=== PATIENT | male | born 1990 | race Hispanic/Latino ===

== ENCOUNTER 2016-07-09 13:01 | Emergency (ER) ==
[2016-07-09 13:11] VITALS: BP 121/58
[2016-07-09] MEDS ORDERED: MOTRIN PO ONE (13:12)
[2016-07-09] MEDS ORDERED: DECADRON IM ONE (13:40)
--- NOTE | 2016-07-09 13:41 | PROVIDER DOCUMENTATION ---
HPI-Respiratory General <Freda CeballosMonster - Last Filed: 07/09/16 13:37> - General Source: patient - History of Present Illness-Resp Quality of Pain: reports: aching Severity in ED: reports: mild Onset/Duration: reports: gradual, last night Timing: reports: still present Context: reports: multiple patients with similar complaints Cough Quality/Degree: reports: mild, dry cough Modifying Factors: worse with: coughing Associated Symptoms: reports: cough, dizziness, flu-like symptoms, muscle/ bodyaches. denies: nasal congestion, nasal drainage, shortness of breath, short of breath, sore throat Similar Symptoms Previously?: No Recently seen or treated by another doctor?: No <Dustin Fuller - Last Filed: 07/09/16 13:55> - General Chief Complaint: Flu Symptoms Stated Complaint: BODY ACHES/DIZZY/RIGHT SIDE PAIN Time Seen by Provider: 07/09/16 13:36 Allergies/Adverse Reactions: Patient Allergies Allergy/AdvReac Type Severity Reaction Status Date / Time No Known Allergies Allergy Verified 07/09/16 13:11 - History of Present Illness-Resp Nature of Presenting Problem: pt is a 25 y/o m that presents to the ER with bodyaches, fever/chills, cough, congestion, and fatigue x 24 hours. patient denies n/v/d, abdominal pain, or earache (Dustin Fuller) Review of Systems - Adult - REVIEW OF SYSTEMS - ADULT Constitutional: reports: chills, fever Eyes: reports: no symptoms reported Ears, Nose, Mouth & Throat: denies: ear pain, sinus problem, throat pain, throat swelling Cardiovascular: denies: chest pain, palpitations Respiratory: reports: cough. denies: shortness of breath, wheezing Gastrointestinal: denies: abdominal pain, diarrhea, nausea, vomiting Genitourinary: reports: no symptoms reported Musculoskeletal: reports: muscle aches. denies: joint swelling Integumentary: reports: no symptoms reported Neurological: reports: dizziness/vertigo, headache/migraines Psychiatric: reports: no symptoms reported Endocrine: reports: no symptoms reported Hematologic/Lymphatic: reports: no symptoms reported Allergic/Immunologic: reports: no symptoms reported All Other Systems: Reviewed and Negative <Dustin Fuller - Last Filed: 07/09/16 13:55> Past History - Adult - PAST MEDICAL HISTORY-ADULT Review of Records: reports: Old Records Reviewed, Nursing Assessment Review, Medications Reviewed - PRIOR SURGERIES/PROCEDURES Surgical/Procedure History: reports: none - IMMUNIZATION STATUS Childhood Immunizations: See Nurse Assessment Flu Vaccine: See Nurse Assessment - FAMILY HISTORY Family History: reviewed, not pertinent - SOCIAL HISTORY Smoking: non-smoker Living Situation: family <Dustin Fuller - Last Filed: 07/09/16 13:55> Physical Exam-General - PHYSICAL EXAM-ADULT Initial Vital Signs Reviewed: Yes - CONSTITUTIONAL General Appearance: alert, other (fatigue) - EYES Eyes: PERRL/EOMI, pink conjunctivae - HEAD, EARS, NOSE, MOUTH & THROAT HENMT: normocephalic/atraumatic, moist mucous membranes, normal ENT inspection, pharynx normal - NECK Neck: non-tender, full range of motion, normal inspection - RESPIRATORY Respiratory: lungs clear, normal breath sounds, no respiratory distress, no accessory muscle use - CARDIOVASCULAR Cardiovascular: no JVD, no murmur, tachycardia - GASTROINTESTINAL (ABDOMEN) Abdominal Exam: normal bowel sounds, non tender, soft, no organomegaly, no pulsatile mass - MUSCULOSKELETAL Back Exam: no CVA tenderness, no vertebral tenderness Extremity: normal range of motion, normal inspection - SKIN Integumentary: normal color, normal turgor, warm/dry - NEUROLOGIC Neurologic: grossly normal, no motor/sensory deficits - PSYCHIATRIC Psych/Mental Status: normal mood/affect, normal thought content, normal thought process, oriented x 3 <Dustin Fuller - Last Filed: 07/09/16 13:55> Progress <Freda Ceballos - Last Filed: 07/09/16 13:37> <Dustin Fuller - Last Filed: 07/09/16 13:55> - PLAN OF CARE/RESULTS Progress/Plan/Lab Results: Vital Signs Temp Pulse Resp BP Pulse Ox 07/09/16 13:09 100.8 F H 128 H 22 121/58 98 No Known Allergies Allergy (Verified 07/09/16 13:11) Oseltamivir [Tamiflu] 75 mg PO BID #10 capsule 07/09/16 Laboratory 07/09/16 13:31 Influenza A (Rapid) POSITIVE A Influenza B (Rapid) NEGATIVE Orders Category Date Time Status INFLUENZA SCREEN PL Stat Lab 07/09/16 13:31 Completed Dexamethasone [Decadron] Med 07/09/16 13:40 Once 4 mg IM NOW ONE Ibuprofen [Motrin] Med 07/09/16 13:12 Discontinued 600 mg PO NOW ONE (Freda Ceballos) Vital Signs Temp Pulse Resp BP Pulse Ox 07/09/16 13:09 100.8 F H 128 H 22 121/58 98 No Known Allergies Allergy (Verified 07/09/16 13:11) Oseltamivir [Tamiflu] 75 mg PO BID #10 capsule 07/09/16 Laboratory 07/09/16 13:31 Influenza A (Rapid) POSITIVE A Influenza B (Rapid) NEGATIVE Orders Category Date Time Status INFLUENZA SCREEN PL Stat Lab 07/09/16 13:31 Completed Dexamethasone [Decadron] Med 07/09/16 13:40 Discontinued 4 mg IM NOW ONE Ibuprofen [Motrin] Med 07/09/16 13:12 Discontinued 600 mg PO NOW ONE (Dustin Fuller) Departure - Departure Time of Disposition Order: 13:38 Certified Medical Emergency: Emergent <Freda Ceballos - Last Filed: 07/09/16 13:37> <Dustin Fuller - Last Filed: 07/09/16 13:55> - Departure DIAGNOSIS: Influenza A Disposition: HOME 01 Condition: Stable Additional Instructions: Alternate tylenol and motrin for pain and fever ED Follow Up Instructions: You have been treated by a care provider in the Emergency Department. These instructions are being provided to you so you can have an understanding of how to care for yourself upon discharge. Upon discharge from the Emergency Department, you are responsible for making arrangements for follow-up care by a physician of your choice. Take all prescribed medications as directed. Return to the Emergency Department immediately for any new or worsening symptoms. You may call the Physician Referral phone number at [phone] to obtain a list of Physicians who are taking new patients. Prescriptions: Oseltamivir [Tamiflu] 75 mg PO BID #10 capsule Referrals: None,PCP [Primary Care Provider] - Dalia Rodriguez MD [STAFF PHYSICIAN] - Forms: Return to School/Parent Work Instructions: Influenza, Adult, Oseltamivir capsules Attestation - Physician/ Mid-level Attestation Patient care was provided by Mid-level provider (WO[employer]OUR MILLER/PA):: Yes Mid-level provider:: Freda Ceballos Mid-level documentation review:: The Mid-level provider documentation, treatment plan and medical decision making was reviewed by the physician who agrees with all treatment and medical decision making by the MLP. <Freda Ceballos - Last Filed: 07/09/16 13:37> - Scribe Verification/Attestation Scribe:: Dustin Fuller Acting as Scribe for:: Freda Ceballos Scribe documention review:: This chart was documented by a scribe and accurately reflects the service the provider performed and the decisions made by the provider. - Physician/ Mid-level Attestation Patient care was provided by Mid-level provider (WO[employer]OUR MILLER/PA):: Yes Mid-level provider:: Freda Ceballos Mid-level documentation review:: The Mid-level provider documentation, treatment plan and medical decision making was reviewed by the physician who agrees with all treatment and medical decision making by the MLP. <Dustin Fuller - Last Filed: 07/09/16 13:55> Physician Attestation
== END 2016-07-09 13:57 | disposition home or self-care (01) ==
LOC: P.ED 13:01
DX: J11.1 Influenza due to unidentified influenza virus with other respiratory manifestations (principal); R05 Cough; R42 Dizziness and giddiness; M79.1 Myalgia; R50.9 Fever, unspecified; R09.81 Nasal congestion; R53.83 Other fatigue; R51 Headache; R00.0 Tachycardia, unspecified
CPT/HCPCS: 87804; 96372; J1100